=== PATIENT | female | born 1970 | race African-American/Black ===

== ENCOUNTER 2018-11-15 17:00 | Emergency (ER) | payer BC, OTHER ==
[~2018-11-15] VITALS: Ht 149.9 cm; Wt 117.9 kg
[~2018-11-15 17:00] MED LIST: MOTRIN800 MG PO; VICODIN 5-5001 EACH PO
--- OUTSIDE RECORDS SUMMARY | 2018-11-15 17:02 | XMS REPORT ---
Author [facility] Address Unknown Phone Unavailable Care Team Providers Care Director Executive Communications Name Role Phone Unavailable Unavailable Payers Payer Name Policy Type Policy Number Effective Date Expiration Date Problems This patient has no known problems. Allergies, Adverse Reactions, Alerts Allergy Name Allergy Type Status Severity Reaction(s) Onset Date Inactive Date Treating Clinician Comments pseudoephedrine HCl DA Active U 2012-09-07 00:00:00 fexofenadine HCl DA Active U 2012-09-07 00:00:00 Penicillins DA Active SV 2012-09-07 00:00:00 egg DA Active U 2012-09-07 00:00:00 POWDERED GLOVES DA Active U 2012-09-07 00:00:00 Medications This patient has no known medications. Encounters Start Date/Time End Date/Time Encounter Type Admission Type Attending Clinicians Care Facility Care Department Encounter ID 2018-07-21 14:18:48 Outpatient [facility] [id number] 2019-01-01 00:00:00 2019-01-01 00:00:00 Outpatient [facility] [id number] 2018-12-25 00:00:00 2018-12-25 00:00:00 Outpatient [facility] [id number] 2018-12-13 00:00:00 2018-12-13 00:00:00 Outpatient [facility] [id number] 2018-12-11 00:00:00 2018-12-11 00:00:00 Outpatient [facility] [id number] 2018-12-08 00:00:00 2018-12-08 00:00:00 Outpatient [facility] [id number] 2018-12-05 00:00:00 2018-12-05 00:00:00 Outpatient [facility] [id number] 2018-11-14 00:00:00 2018-11-14 00:00:00 Outpatient [facility] [id number] 2018-11-13 10:29:09 2018-11-13 10:29:09 Outpatient [facility] [id number] 2018-11-13 00:00:00 2018-11-13 00:00:00 Outpatient [facility] [id number] 2018-11-10 08:00:48 2018-11-10 08:00:48 Outpatient [facility] [id number] 2018-11-09 00:00:00 2018-11-09 00:00:00 Outpatient [facility] [id number] 2018-11-07 00:00:00 2018-11-07 00:00:00 Outpatient [facility] [id number] 2018-11-07 00:00:00 2018-11-07 00:00:00 Outpatient [facility] [id number] 2018-11-06 00:00:00 2018-11-06 00:00:00 Outpatient [facility] [id number] 2018-11-01 00:00:00 2018-11-01 00:00:00 Outpatient [facility] [id number] 2018-10-24 08:05:51 2018-10-24 08:05:51 Outpatient [facility] [id number] 2018-10-23 08:32:30 2018-10-23 08:32:30 Outpatient [facility] [id number] 2018-10-12 08:29:23 2018-10-12 08:29:23 Outpatient [facility] [id number] 2018-10-10 08:02:13 2018-10-10 08:02:13 Outpatient [facility] [id number] 2018-10-09 09:26:36 2018-10-09 09:26:36 Outpatient [facility] [id number] 2018-10-06 09:24:53 2018-10-06 09:24:53 Outpatient [facility] [id number] 2018-10-03 08:32:58 2018-10-03 08:32:58 Outpatient [facility] [id number] 2018-10-03 00:00:00 2018-10-03 00:00:00 Outpatient [facility] [id number] 2018-10-02 00:00:00 2018-10-02 00:00:00 Outpatient [facility] [id number] 2018-09-26 09:23:07 2018-09-26 09:23:07 Outpatient [facility] [id number] 2018-09-25 07:56:42 2018-09-25 07:56:42 Outpatient [facility] [id number] 2018 11:40:55 2018 11:40:55 Outpatient [facility] [id number] 2018-09-18 12:12:23 2018-09-18 12:12:23 Outpatient [facility] [id number] 2018-09-14 11:45:30 2018-09-14 11:45:30 Outpatient [facility] [id number] 2018-09-14 10:30:38 2018-09-14 10:30:38 Outpatient [facility] [id number] 2018-09-12 08:55:51 2018-09-12 08:55:51 Outpatient [facility] [id number] 2018-09-07 09:24:49 2018-09-07 09:24:49 Outpatient [facility] [id number] 2018-09-06 15:40:30 2018-09-06 15:40:30 Outpatient [facility] [id number] 2018-09-05 09:20:07 2018-09-05 09:20:07 Outpatient [facility] [id number] 2018-09-04 15:27:19 2018-09-04 15:27:19 Outpatient [facility] [id number] 2018-09-04 14:25:42 2018-09-04 14:25:42 Outpatient [facility] [id number] 2018-09-04 14:20:27 2018-09-04 14:20:27 Outpatient [facility] [id number] 2018-09-04 08:42:01 2018-09-04 08:42:01 Outpatient [facility] [id number] 2018-09-04 00:00:00 2018-09-04 00:00:00 Outpatient [facility] [id number] 2018-09-01 13:29:09 2018-09-01 13:29:09 Outpatient [facility] [id number] 2018-08-28 13:37:01 2018-08-28 13:37:01 Outpatient [facility] [id number] 2018-08-28 09:22:00 2018-08-28 09:22:00 Outpatient [facility] [id number] 2018-08-22 13:30:10 2018-08-22 13:30:10 Outpatient [facility] [id number] 2018-08-21 13:10:21 2018-08-21 13:10:21 Outpatient [facility] [id number] 2018-08-21 00:00:00 2018-08-21 00:00:00 Outpatient [facility] [id number] 2018-08-17 15:35:12 2018-08-17 15:35:12 Emergency [facility] [id number] 2018-08-17 12:05:37 2018-08-17 12:05:37 Emergency [facility] [id number] 2018-08-16 06:30:00 2018-08-16 06:30:00 Outpatient [facility] [id number] 2018-08-16 00:00:00 2018-08-16 00:00:00 Outpatient [facility] [id number] 2018-08-08 09:49:42 2018-08-08 09:49:42 Outpatient [facility] [id number] 2018-08-07 13:45:59 2018-08-07 13:45:59 Outpatient [facility] [id number] 2018-08-07 09:49:24 2018-08-07 09:49:24 Outpatient [facility] [id number] 2018-08-07 00:00:00 2018-08-07 00:00:00 Outpatient [facility] [id number] 2018-08-04 11:00:42 2018-08-04 11:00:42 Outpatient [facility] [id number] 2018-08-04 00:00:00 2018-08-04 00:00:00 Outpatient [facility] [id number] 2018-07-31 14:01:07 2018-07-31 14:01:07 Outpatient [facility] [id number] 2018-07-31 12:17:54 2018-07-31 12:17:54 Outpatient [facility] [id number] 2018-07-28 00:00:00 2018-07-28 00:00:00 Outpatient [facility] [id number] 2018-07-28 00:00:00 2018-07-28 00:00:00 Outpatient [facility] [id number] 2018-07-20 00:00:00 2018-07-20 00:00:00 Outpatient [facility] [id number] 2018-07-14 06:59:00 2018-07-14 06:59:00 Emergency [facility] [id number] 2018-07-13 11:21:35 2018-07-13 11:21:35 Outpatient [facility] [id number] 2018-07-13 10:59:44 2018-07-13 10:59:44 Outpatient [facility] [id number] 2018-07-13 09:53:47 2018-07-13 09:53:47 Outpatient [facility] [id number] 2018-07-11 14:55:42 2018-07-11 14:55:42 Outpatient [facility] [id number] 2018-07-11 10:09:17 2018-07-11 10:09:17 Emergency [facility] [id number] 2018-07-11 08:49:37 2018-07-11 08:49:37 Outpatient [facility] [id number] 2018-07-10 00:00:00 2018-07-10 00:00:00 Outpatient [facility] [id number] 2018-07-05 09:00:30 2018-07-05 09:00:30 Outpatient [facility] [id number] 2018-07-04 11:18:37 2018-07-04 11:18:37 Outpatient [facility] [id number] 2018-07-04 00:00:00 2018-07-04 00:00:00 Outpatient [facility] [id number] 2018-06-29 11:21:59 2018-06-29 11:21:59 Outpatient [facility] [id number] 2018-06-27 16:11:00 2018-06-27 16:11:00 Emergency [facility] [id number] 2018-06-08 15:26:32 2018-06-08 15:26:32 Outpatient [facility] [id number] 2018-06-08 14:49:41 2018-06-08 14:49:41 Outpatient [facility] [id number] 2018-06-08 00:00:00 2018-06-08 00:00:00 Outpatient [facility] [id number] 2018-06-08 00:00:00 2018-06-08 00:00:00 Outpatient [facility] [id number] 2018-06-07 09:05:19 2018-06-07 09:05:19 Outpatient [facility] [id number] 2018-06-05 00:00:00 2018-06-05 00:00:00 Outpatient [facility] [id number] 2018-05-11 00:00:00 2018-05-11 00:00:00 Outpatient [facility] [id number] 2018-05-09 00:00:00 2018-05-09 00:00:00 Outpatient [facility] [id number] 2018-05-09 00:00:00 2018-05-09 00:00:00 Outpatient [facility] [id number] 2018-05-08 00:00:00 2018-05-08 00:00:00 Outpatient [facility] [id number] 2018-05-08 00:00:00 2018-05-08 00:00:00 Outpatient [facility] [id number] 2018-04-17 15:13:49 2018-04-17 15:13:49 Outpatient [facility] [id number] 2018-04-11 14:10:55 2018-04-11 14:10:55 Outpatient [facility] [id number] 2017-01-19 00:00:00 2017-01-19 00:00:00 Outpatient [facility] [id number] 2016-12-13 00:00:00 2016-12-13 00:00:00 Outpatient [facility] [id number] 2016-12-01 09:40:51 2016-12-01 09:40:51 Outpatient [facility] [id number] 2016-11-25 14:47:37 2016-11-25 14:47:37 Outpatient [facility] [id number] 2016-11-19 00:00:00 2016-11-19 00:00:00 Outpatient [facility] [id number] 2016-10-07 00:00:00 2016-10-07 00:00:00 Outpatient [facility] [id number] 2016-09-22 11:29:49 2016-09-22 11:29:49 Outpatient [facility] [id number] 2016-09-22 09:35:51 2016-09-22 09:35:51 Outpatient [facility] [id number] 2016-07-28 14:15:54 2016-07-28 14:15:54 Outpatient [facility] [id number] 2016-07-28 13:30:12 2016-07-28 13:30:12 Outpatient [facility] [id number] 2016-07-23 11:08:17 2016-07-23 11:08:17 Outpatient [facility] [id number] 2016-07-23 10:08:44 2016-07-23 10:08:44 Outpatient [facility] [id number] Results Test Description Test Time Test Comments Text Results Atomic Results Result Comments - XR HAND 3 + V RT 2018-07-02 13:28:00 FAX: Shaggy Og [phone] [place]: St: PRE FAX: Y Ashwin Godfrey MD [phone] Name: SIMEON GUY [facility] : 1970 Age/S: 47/F [address] [place] [address] Unit #: [id number] Loc: [place] [address] Phys: Ashwin Godfrey MD Acct: [id number] Dis Date: Status: PRE ER PHONE #: [phone] Exam Date: 07/02/2018 1322 FAX #: [phone] Reason: numbness/pain EXAMS: CPT CODE: [id number] XR HAND 3 + [place] RT [address]34 PROCEDURE: Right Hand Radiographs. Clinical Indication: Right wrist laceration, right hand numbness and pain. Comparison: None FINDINGS: The 3 views of the right hand show an apparent soft tissue laceration involving the volar aspect of the right wrist. No acute displaced fracture, dislocation or radiopaque foreign body is observed. IMPRESSION: 1. Findings suggesting soft tissue laceration. SL: K56-H at 5910 Reported and signed by: Edwin Osei M.D. CC: Shaggy Villalta MD; Ashwin Godfrey MD Technologist: Mary Ellen Estes RT(R) Trnscrd Date/Time/By: 07/02/2018 (6256) : By: JessyO Orig Print D/T: S: 07/02/2018 (0593) PAGE 1 Signed Report
--- OUTSIDE RECORDS SUMMARY | 2018-11-15 17:03 | XMS REPORT | Encounter Summary ---
Author Organization Unknown Address [address] [place] [address] Phone [phone] Care Team Providers Care Analytical Scientist Name Role Phone Dr. Eric Coppola 3 [phone] Reason for Visit Arthritis; Depressive disorder Instructions 1. Localized, primary osteoarthritis of the ankle and/or foot hydrocodone 5 mg-acetaminophen 325 mg tablet 2. Atopic dermatitis hydrocortisone 2.5 % topical cream 3. Asthma ProAir HFA 90 mcg/actuation aerosol inhaler 4. Vitamin D deficiency ergocalciferol (vitamin D2) 50,000 unit capsule vitamin D, 25-hydroxy, total, serum Discussion Note: None recorded. Patient educational handouts: No information available. Plan of Care Reminders Provider Appointments Return to Office on or around 11/03/2018 Eric Guerrero MD Lab Vitamin D, 25-Hydroxy, Total, Serum 08/02/2018 [facility] Laboratory Referral None recorded. Procedures None recorded. Surgeries None recorded. Imaging None recorded. Medications Name Start Date albuterol sulfate 2.5 mg/3 mL (0.083 %) solution for nebulization Inhale 3 mL every 6-8 hours by nebulization route as needed for 10 days. azelastine 0.05 % eye drops 1 [drp] by ophthalmic route. 04/17/2018 ergocalciferol (vitamin D2) 50,000 unit capsule Take 1 capsule every week by oral route as directed for 56 days. fluoxetine 20 mg capsule 20 mg by oral route. 10/07/2016 hydrocodone 5 mg-acetaminophen 325 mg tablet Take 1 tablet(s) every day by oral route as needed hydrocortisone 2.5 % topical cream APPLY A THIN LAYER TO THE AFFECTED AREA(S) BY TOPICAL ROUTE 2 TIMES PER DAY FOR UP TO 2 WEEKS ibuprofen 200 mg tablet Take 1 tablet every 6 hours by oral route with meals for 90 days. ketorolac 0.5 % eye drops INSTILL ONE DROP INTO THE AFFECTED EYE(S) FOUR TIMES A DAY NEEDED meloxicam 15 mg tablet Take 1 tablet every day by oral route as needed for 15 days. ProAir HFA 90 mcg/actuation aerosol inhaler Inhale 2 puffs every 4-6 hours by inhalation route as needed for 30 days. promethazine-DM 6.25 mg-15 mg/5 mL oral syrup Take 5 mL every 6 hours by oral route as needed for 5 days. Symbicort 160 mcg-4.5 mcg/actuation HFA aerosol inhaler Inhale 2 puffs twice a day by inhalation route as directed for 30 days. Medications Administered None recorded. Vitals Height Weight BMI Blood Pressure 4 ft 11 in 262.6 lbs 53 kg/m2 108/74 mm[Hg] Lab Results None recorded. Allergies Code Code System Name Reaction Severity Status Onset KAMERON-D Active Penicillins Active 05904 RxNorm Tramadol Active Problems Name Status Onset Date Source Anxiety State Active 12/08/2005 External Ankle Pain Active 12/08/2005 External Genital Herpes Simplex Active 08/28/2007 External Arthralgia of the Ankle And/or Foot Active 05/29/2010 External Gingivitis Active 11/22/2011 External Recurrent Major Depressive Episodes, Moderate Active 06/13/2013 External Allergic Rhinitis Active 06/02/2016 External Asthmatic Bronchitis Active 06/02/2016 External Gastroesophageal Reflux Disease Active 06/02/2016 External Knee Pain Active 06/02/2016 External Depressive Disorder Active 07/16/2016 Ankle Joint Pain Active 07/16/2016 Abnormal Weight Gain Active 07/16/2016 History of Anemia Active 07/16/2016 Body Mass Index 40+ - Severely Obese Active 07/16/2016 Osteoarthritis of Ankle Active 07/23/2016 External Cervical Intraepithelial Neoplasia Grade 1 Active 07/26/2016 External Bacterial Vaginosis Active External Uterine Leiomyoma Active External Vitamin D Deficiency Active External Obesity Active External Anemia Active External Arthritis Active Low Back Pain Active External Snoring Active External Procedures Date Name Performed by 02/15/1996 Ankle Arthroscopy/surgery Information not available 02/14/1994 Delivery Information not available 02/15/1992 Delivery Information not available Tubal Ligation Information not available Vaccine List Vaccine Type Tdap 03/18/2016 Social History Smoking Status Former Smoker Past Encounters 08/02/2018 Localized, Primary Osteoarthritis of the Ankle And/or Foot; Atopic Dermatitis; Asthma; Vitamin D Deficiency Eric Guerrero MD: [id number] [place] [address], Ph. History of Present Illness Chronic Pain Follow-up Reported By: Patient HPI: Analgesia: taking pain medication, other medication (and strength):, percentage of pain relief: 50 %. Pain Severity: average pain: 8/10, worst pain: 10/10. ADL Improvements: physically functioning, able to maintain relationships, mood unaffected, sleep patterns undisturbed, overall function improved. Adverse Reactions: no nausea, no vomiting, no constipation, no itching, no mental cloudiness, no sweating, no fatigue, no drowsiness, no sexual dysfunction Note:R/o f/u visit. Hx of chronic right ankle and bilateral knee pain (L>than R) secondary to OA.<div>Pt tripped, fell and cut her R wrist with a glass vase on 06/27/18. She had partial median nerve injury.</div> Review of Systems:ROS as noted in the HPI Review of Systems Comprehensive General Adult ROS Reported By: Patient Constitutional: Constitutional: no fever Eyes: Eyes: no vision change ENMT: Ears: no ear pain. Nose: no sinus problems. Mouth/Throat: no sore throat Cardiovascular: Cardiovascular: no chest pain, no palpitations, no known heart murmur, no lightheadedness Gastrointestinal: Gastrointestinal: no abdominal pain, no nausea, no vomiting, no constipation Genitourinary: Genitourinary: no incontinence, no difficulty urinating, no hematuria, no increased frequency Musculoskeletal: Musculoskeletal: arthralgias/joint pain Integumentary: Skin: rash, itching Neurologic: Neurologic: no loss of consciousness, no numbness, no headaches Psychiatric: Psych: no depression Physical Exam General Adult Exam (male), Breast Exam Reported By: Patient Constitutional: General Appearance: obese. Level of Distress: NAD Psychiatric: Insight: good judgement. Mental Status: active and alert, normal mood, normal affect. Orientation: to time, to place, to person. Memory: recent memory normal, remote memory normal Eyes: Lids and Conjunctivae: non-injected, no discharge ENMT: Ears: TMs clear. Nose: nares patent, no nasal discharge. Oropharynx: moist mucous membranes, no erythema, no exudates Neck: Neck: supple, trachea midline. Lymph Nodes: no cervical LAD Lungs: Respiratory effort: no dyspnea. Auscultation: breath sounds normal Cardiovascular: Heart Auscultation: RRR, normal S1, normal S2, no murmurs Musculoskeletal:: Extremities: ; RIGHT ANKLE: tender, decreased ROM because of the pain. KNEES: tenderness in the joint lines. Normal ROM. No swelling. No erythema. Negative anterior and posterior drawer signs. Normal valgus and varus stress test Neurologic: Gait and Station: normal gait. Sensation: grossly intact; weak registered private duty nurse in R hand Skin: Inspection and palpation: ; raised circular lesions in the neck
--- OUTSIDE RECORDS SUMMARY | 2018-11-15 17:03 | XMS REPORT | Encounter Summary ---
Author Organization Unknown Address [address] [place] [address] Phone [phone] Care Team Providers Care Electrotherapist Name Role Phone Dr. Eric Coppola 3 [phone] Reason for Visit cough Instructions 1. Exacerbation of asthma Levaquin 500 mg tablet prednisone 50 mg tablet albuterol sulfate 2.5 mg/3 mL (0.083 %) solution for nebulization Depo-Medrol 80 mg/mL suspension for injection promethazine 6.25 mg-codeine 10 mg/5 mL syrup Advair Diskus 250 mcg-50 mcg/dose powder for inhalation 2. Morbid obesity starting a weight loss plan: care instructions start aerobic exercise body mass index: care instructions dash diet: care instructions Discussion Note: None recorded. Plan of Care Reminders Provider Appointments Est Patient 10/17/2018 9:00AM Eric Guerrero MD Lab None recorded. Referral None recorded. Procedures None recorded. Surgeries None recorded. Imaging None recorded. Medications Name Start Date Advair Diskus 250 mcg-50 mcg/dose powder for inhalation Inhale 1 puff twice a day by inhalation route as directed for 30 days. albuterol sulfate 2.5 mg/3 mL (0.083 %) solution for nebulization Inhale 3 mL as needed by nebulization route as needed. Depo-Medrol 80 mg/mL suspension for injection Take 80 mg by injection route. ergocalciferol (vitamin D2) 50,000 unit capsule Take 1 capsule every week by oral route as directed for 56 days. gabapentin 300 mg capsule Take 1 capsule twice a day by oral route as directed for 30 days. hydrocodone 5 mg-acetaminophen 325 mg tablet Take 1 tablet(s) every day by oral route as needed hydrocortisone 2.5 % topical cream APPLY A THIN LAYER TO THE AFFECTED AREA(S) BY TOPICAL ROUTE 2 TIMES PER DAY FOR UP TO 2 WEEKS Levaquin 500 mg tablet Take 1 tablet every 24 hours by oral route as directed for 10 days. meloxicam 15 mg tablet Take 1 tablet every day by oral route as needed for 15 days. prednisone 50 mg tablet Take 1 tablet every day by oral route as directed for 5 days. ProAir HFA 90 mcg/actuation aerosol inhaler Inhale 2 puffs every 4-6 hours by inhalation route as needed for 30 days. promethazine 6.25 mg-codeine 10 mg/5 mL syrup Take 5 mL 3 times a day by oral route as needed for 5 days. Medications Administered Name Date albuterol sulfate 2.5 mg/3 mL (0.083 %) solution for nebulization Inhale 3 mL as needed by nebulization route as needed. 9710-63-86O28:57:00 Depo-Medrol 80 mg/mL suspension for injection Take 80 mg by injection route. 1099-12-94I35:55:00 Vitals Height Weight BMI Blood Pressure 4 ft 11 in 259.2 lbs 52.4 kg/m2 114/80 mm[Hg] Lab Results None recorded. Allergies Code Code System Name Reaction Severity Status Onset KAMERON-D Active Penicillins Active 15225 RxNorm Tramadol Active Problems Name Status Onset [...] List Vaccine Type Tdap 03/18/2016 Social History Tobacco Smoking Status Former Smoker Past Encounters 09/11/2018 Exacerbation of Asthma; Morbid Obesity Eric Guerrero MD: [address] [place] [address], Ph. History of Present Illness Note:Complaining of persistent productive cough since 3 days ago. Pt completed 10 days of treatment with doxycycline on 08/27/18 for a bacterial pneumonia. Concomitantly, sneezing, chills, sob, wheezing and chest pain with coughing.<div >Pt stopped the symbicort a few weeks ago due to the cost.</div> Review of Systems:ROS as noted in the HPI Review of Systems None recorded. Physical Exam General Adult Exam (male) Reported By: Patient Constitutional: General Appearance: healthy-appearing, morbidly obese. Level of Distress: NAD. Ambulation: ambulating normally Psychiatric: Insight: good judgement. Mental Status: active and alert, normal mood, normal affect. Orientation: to time, to place, to person. Memory: recent memory normal, remote memory normal Eyes: Lids and Conjunctivae: non-injected, no discharge. EOM: EOMI ENMT: Ears: TMs clear. Nose: no sinus tenderness, nares non-patent, nasal discharge, post nasal drip. Lips, Teeth, and Gums: no mouth or lip ulcers. Oropharynx: moist mucous membranes, no exudates, erythema Neck: Neck: supple, trachea midline. Lymph Nodes: cervical LAD. Thyroid: no enlargement, non-tender Lungs: Respiratory effort: no dyspnea. Auscultation: expiratory wheezing, rhonchi Cardiovascular: Heart Auscultation: RRR, normal S1, normal S2, no murmurs Neurologic: Gait and Station: normal gait
--- OUTSIDE RECORDS SUMMARY | 2018-11-15 17:03 | XMS REPORT | Encounter Summary ---
Author Organization Unknown Address [address] [place] [id number] Phone [phone] Care Team Providers Care Heat Regulator Name Role Phone Dr. Eric Coppola 3 [phone] Reason for Visit Asthmatic bronchitis; other - see typed reason; abscess/boil Instructions 1. Exacerbation of asthma Advair Diskus 250 mcg-50 mcg/dose powder for inhalation 2. Localized, primary osteoarthritis of the ankle and/or foot hydrocodone 5 mg-acetaminophen 325 mg tablet 3. Injury of median nerve 4. Abscess of axilla mupirocin 2 % topical ointment Bactrim DS 800 mg-160 mg tablet 5. Allergic rhinitis fluticasone propionate 50 mcg/actuation nasal spray,suspension 6. Influenza vaccination declined 7. Body mass index 40+ - severely obese body mass index: care instructions learning about healthy weight Discussion Note: None recorded. Plan of Care Reminders Provider Appointments Return to Office on or around 02/02/2019 Eric Guerrero MD Lab None recorded. Referral [...] as needed by nebulization route as needed. Bactrim DS 800 mg-160 mg tablet Take 1 tablet every 12 hours by oral route as directed for 10 days. ergocalciferol (vitamin D2) 50,000 unit capsule Take 1 capsule every week by oral route as directed for 56 days. fluticasone propionate 50 mcg/actuation nasal spray,suspension Dodge 1 spray twice a day by intranasal route as directed for 14 days. gabapentin 300 mg capsule Take 1 capsule twice a day by oral route as directed for 30 days. hydrocodone 5 mg-acetaminophen 325 mg tablet Take 1 tablet(s) every day by oral route as needed hydrocortisone 2.5 % topical cream APPLY A THIN LAYER TO THE AFFECTED AREA(S) BY TOPICAL ROUTE 2 TIMES PER DAY FOR UP TO 2 WEEKS hydroxyzine HCl 25 mg tablet Take 1 tablet 3 times a day by oral route. meloxicam 15 mg tablet Take 1 tablet every day by oral route as needed for 15 days. mupirocin 2 % topical ointment APPLY A SMALL AMOUNT TO THE AFFECTED AREA BY TOPICAL ROUTE 3 TIMES PER DAY FOR 10 DAYS Medications Administered None recorded. Vitals Height Weight BMI Blood Pressure 4 ft 11 in 261.8 lbs 52.9 kg/m2 122/78 mm[Hg] Lab Results None recorded. Allergies Code Code System Name Reaction Severity Status Onset KAMERON-D Active Penicillins Active 72868 RxNorm Tramadol Active Problems Name Status Onset [...] Tobacco Smoking Status Former Smoker Past Encounters 11/01/2018 Exacerbation of Asthma; Localized, Primary Osteoarthritis of the Ankle And/or Foot; Injury of Median Nerve; Abscess of Axilla; Allergic Rhinitis; Influenza Vaccination Declined; Body Mass Index 40+ - Severely Obese Eric A. Abdon Guerrero MD: [address] [place] [address], Ph. History of Present Illness Chronic Pain [...] no fatigue, no drowsiness, no sexual dysfunction Note:f/u visit. Hx of chronic right ankle and bilateral knee pain (L>R) secondary to OA. Review of Systems Comprehensive General Adult ROS Reported By: Patient Eyes: Eyes: no vision change ENMT: Ears: no ear pain. Nose: no sinus problems. Mouth/Throat: no sore throat Cardiovascular: Cardiovascular: no chest pain, no palpitations, no known heart murmur, no lightheadedness Gastrointestinal: Gastrointestinal: no abdominal pain, no nausea, no vomiting, no constipation Genitourinary: Genitourinary: no incontinence, no difficulty urinating, no hematuria, no increased frequency Musculoskeletal: Musculoskeletal: arthralgias/joint pain Neurologic: Neurologic: no loss of consciousness, no [...] Eyes: Lids and Conjunctivae: non-injected, no discharge Neck: Neck: supple, trachea midline Lungs: Respiratory effort: no dyspnea. Auscultation: breath [...] Station: normal gait. Sensation: grossly intact; weak commercial decorator in R hand Skin: Inspection and palpation: ; furuncle in R axilla
--- OUTSIDE RECORDS SUMMARY | 2018-11-15 17:03 | XMS REPORT ---
Author Organization Unknown Address [address] [place] [address] Phone [phone] Care Team Providers Care Web Master Name Role Phone Eric Jacobo Unavailable Unavailable Allergies Code Code System Name Reaction Severity Status Onset KAMERON-D Active Penicillins Active 97465 RxNorm Tramadol Active Notes: *PT DISLIKES ROBITUSSIN AC* Medications Name Status Start Date Stop Date albuterol sulfate 2.5 mg/3 mL (0.083 %) solution for nebulization Inhale 3 mL as needed by nebulization route. Active Not available atorvastatin 10 mg tablet Take 1 tablet every day by oral route as directed for 30 days. Completed 12/15/2016 azithromycin 250 mg tablet DIRECTED Completed 02/16/2017 azithromycin 500 mg tablet Take every 24 hours by oral route. Completed 08/05/2016 bupropion HCl SR 150 mg tablet,12 hr sustained-release Take 1 tablet twice a day by oral route. Completed 12/15/2016 cetirizine 10 mg tablet Take every 24 hours by oral route. Completed 12/15/2016 Depo-Medrol 80 mg/mL suspension for injection Take 80 mg by injection route. Completed 02/16/2017 Diflucan 150 mg tablet Take one tablet today, then one tablet 4 days later Completed 04/23/2016 fluticasone 50 mcg/actuation nasal spray,suspension [place]geon 1 spray twice a day by intranasal route as directed for 30 days. Active Not available gabapentin 300 mg capsule Take 1 capsule twice a day by oral route as directed for 30 days. Completed 12/15/2016 hydrocodone 5 mg-acetaminophen 325 mg tablet Take 1 tablet every day by oral route as needed. Active Not available ibuprofen 200 mg tablet Take 1 tablet every 6 hours by oral route with meals for 90 days. Active Not available Levaquin 500 mg tablet every 24 hours by oral route. Completed 04/23/2016 loratadine 10 mg tablet Take 1 tablet every day by oral route for 30 days. Completed 02/16/2017 prednisone 20 mg tablet QD Completed 02/16/2017 prednisone 50 mg tablet Take 1 tablet every day by oral route as directed for 3 days. Completed 02/16/2017 ProAir HFA 90 mcg/actuation aerosol inhaler Inhale 2 puffs every 6-8 hours by inhalation route as needed for 10 days. Completed 05/09/2017 promethazine 6.25 mg-codeine 10 mg/5 mL syrup Take 5 mL 3 times a day by oral route as needed for 5 days. Completed 05/09/2017 promethazine-DM 6.25 mg-15 mg/5 mL syrup Take 5 mL every 6 hours by oral route as needed for 5 days. Completed 05/09/2017 Singulair 10 mg tablet Take 1 tablet every day by oral route for 30 days. Active Not available Tessalon Perles 100 mg capsule Take 1 capsule 3 times a day by oral route as needed for 20 days. Completed 12/15/2016 Vitamin D2 50,000 unit capsule Take 1 capsule every week by oral route. Completed 02/08/2017 Problems Name Status Onset Date Source Depressive Disorder Active 07/16/2016 Ankle Joint Pain Active 07/16/2016 Abnormal Weight Gain Active 07/16/2016 History of Anemia Active 07/16/2016 Body Mass Index 40+ - Severely Obese Active 07/16/2016 Arthritis Active Procedures Date Name Performed by 02/15/1996 Ankle Arthroscopy/surgery Notes: right Information not available 02/14/1994 Delivery Information not available 02/15/1992 Delivery Information not available Tubal Ligation Information not available Lab Results Date Name Specimen Result Interpretation Description Value Range Status Address 07/19/2016 HIV-1/2 Ag and Abs Screen, 4TH Gen. W/rflx (94222) Normal HIV Ag/Ab, 4TH Gen non-reactive non-reactive [facility] Laboratory: [facility] [address] [address] 07/19/2016 Hepatitis C Virus RNA, Quant, PCR, Serum or Plasma Normal Hepatitis C Antibody non-reactive non-reactive [facility] Laboratory: [address] [place] [address] Normal Signal to Cut-off 0.05 <1.00 [facility] Laboratory: [address] [place], [place] [address]y [address] 07/19/2016 Herpes Simplex Virus 2 Ab, IgG, QL, IA, Serum or Plasma High Hsv 2 IgG, Type Specific Ab 11.80 index [facility] Laboratory: [address], [place] 07/19/2016 HBsAg (Hepatitis B Surface Ag), Confirmation, Serum Normal Hepatitis B Surface Antigen non-reactive non-reactive Final [facility] Laboratory: [address] [place] [address] Confirmation Preliminary [facility] Laboratory: [address], [place] 07/19/2016 RPR (Rapid Plasma Reagin), Quantitative, Serum Normal RPR (DX) W/refl Titer and Confirmatory Testing non-reactive non-reactive Final [facility] [address] [facility] CBC W/ Auto Diff Normal White Blood Cell Count 7.7 thousand/uL 3.8-10.8 thousand/uL Final [facility] Laboratory: [address] Normal Red Blood Cell Count 4.87 million/uL 3.80-5.10 million/uL Final [facility] Laboratory: [address] Normal Hemoglobin 12.6 g/dL 11.7-15.5 g/dL Final [facility] Laboratory: [address] Normal Hematocrit 39.8 % 35.0-45.0 % Final [facility] Laboratory: [address] Normal Mcv 81.7 fL 80.0-100.0 fL Final [facility] Laboratory: [address] [place] [address] Low Mch 25.9 pg 27.0-33.0 pg Final [facility] Laboratory: [address] [place] [address] Low Mchc 31.7 g/dL 32.0-36.0 g/dL Final [facility] Laboratory: [address] High Rdw 16.2 % 11.0-15.0 % Final [facility] Laboratory: [address] Normal Platelet Count 323 thousand/uL 140-400 thousand/uL Final [facility] Laboratory: [address] [place] [address] Normal Mpv 9.1 fL 7.5-12.5 fL Final [facility] Laboratory: [address] Normal Absolute Neutrophils 4805 cells/uL 9722-6727 cells/uL Final [facility] Laboratory: [address] Absolute Band Neutrophils Preliminary [facility] Laboratory: [address], [place] Absolute Metamyelocytes Preliminary [facility] Laboratory: [address], [place] Absolute Myelocytes Preliminary [facility] Laboratory: [address], [place] Absolute Promyelocytes Preliminary [facility] Laboratory: [address], [place] Normal Absolute Lymphocytes 2110 cells/uL 850-3900 cells/uL Final [facility] Laboratory: [address], [place] Normal Absolute Monocytes 393 cells/uL 200-950 cells/uL Final [facility] Laboratory: [address], [place] Normal Absolute Eosinophils 354 cells/uL 15-500 cells/uL Final [facility] Laboratory: [address] [place] Normal Absolute Basophils 39 cells/uL 0-200 cells/uL Final [facility] Laboratory: [address], [place] Absolute Blasts Preliminary [facility] Laboratory: [address], [place] Absolute Nucleated RBC Preliminary [facility] Laboratory: [address], [place] Normal Neutrophils 62.4 % Final [facility] Laboratory: [address], [place] Band Neutrophils Preliminary [facility] Laboratory: [address], [place] Metamyelocytes Preliminary [facility] Laboratory: [address], [place] Myelocytes Preliminary [facility] Laboratory: [address], [place] Promyelocytes Preliminary [facility] Laboratory: [address], [place] Normal Lymphocytes 27.4 % Final [facility] Laboratory: [address], [place] Reactive Lymphocytes Preliminary [facility] Laboratory: [address], [place] Normal Monocytes 5.1 % Final [facility] Laboratory: [address], [place] Normal Eosinophils 4.6 % Final [facility] Laboratory: [address], [place] Normal Basophils 0.5 % Final [facility] Laboratory: [address], [place] Blasts Preliminary [facility]: [address], [place] Nucleated RBC Preliminary [facility] Laboratory: [address], [place] Comment(s) Preliminary [facility] Laboratory: [address], [place] 07/19/2016 Lipid Panel, Serum High Cholesterol, Total 234 mg/dL 125- 200 mg/dL Final [facility] Laboratory: [address] Normal HDL Cholesterol 62 mg/dL > or=46 mg/dL Final [facility] Laboratory: [address] Normal Triglycerides 104 mg/dL <150 mg/dL Final [facility] Laboratory: [address] High LDL-cholesterol 151 mg/dL (calc) <130 mg/dL (calc) Final [facility] Laboratory: [address] Normal Chol/hdlc Ratio 3.8 (calc) < or=5.0 (calc) Final [facility] Laboratory: [address] High Non HDL Cholesterol 172 mg/dL (calc) Final [facility] Laboratory: [address] 07/19/2016 CMP, Serum or Plasma Normal Glucose 84 mg/dL 65-99 mg/dL Final [facility] Laboratory: [address] Normal Urea Nitrogen (BUN) 12 mg/dL 7-25 mg/dL Final [facility] Laboratory: [address] Normal Creatinine 0.71 mg/dL 0.50-1.10 mg/dL Final [facility] Laboratory: [address] Normal eGFR Non-afr. Cuban 103 mL/min/1.73m2 > or=60 mL/min/1.73m2 Final [facility] Laboratory: [address] Normal eGFR 119 mL/min/1.73m2 > or=60 mL/min/1.73m2 Final [facility] Laboratory: [address] BUN/creatinine Ratio not applicable (calc) 6-22 (calc) Final [facility]: [address] Normal Sodium 138 mmol/L 135-146 mmol/L Final [facility] Laboratory: [address] Normal Potassium 3.9 mmol/L 3.5-5.3 mmol/L Final [facility] Laboratory: [address] Normal Chloride 101 mmol/L 98-110 mmol/L Final [facility] Laboratory: [address] Normal Carbon Dioxide 27 mmol/L 20-31 mmol/L Final [facility] Laboratory: [address] Normal Calcium 9.4 mg/dL 8.6-10.2 mg/dL Final [facility] Laboratory: [address] Normal Protein, Total 8.1 g/dL 6.1-8.1 g/dL Final [facility] Laboratory: [address] Normal Albumin 4.7 g/dL 3.6-5.1 g/dL Final [facility] Laboratory: [facility] [address] Normal Globulin 3.4 g/dL (calc) 1.9-3.7 g/dL (calc) Final [facility] Laboratory: [address] [place] [address] Normal Albumin/globulin Ratio 1.4 (calc) 1.0-2.5 (calc) Final [facility] Laboratory: [facility] [address] Normal Bilirubin, Total 0.7 mg/dL 0.2-1.2 mg/dL Final [facility] Laboratory: [address] [place] [address] Normal Alkaline Phosphatase 70 U/L 33-115 U/L Final [facility] Laboratory: [facility] [address] Normal Ast 19 U/L 10-35 U/L Final [facility] Laboratory: [address] Normal Alt 12 U/L 6-29 U/L Final [facility] Laboratory: [facility] [address] 07/19/2016 TSH, Serum or Plasma Normal Tsh 2.66 mIU/L Final [facility] Laboratory: [address] [place] [address] 07/19/2016 HbA1C (Hemoglobin a1C), Blood High Hemoglobin a1C 5.7 % of total HGB <5.7 % of total HGB Final [facility] Laboratory: [address] EAG (mg/dL) 117 (calc) Final [facility] Laboratory: [address] EAG (mmol/L) 6.5 (calc) Final [facility] Laboratory: [address] [place] [address] 07/19/2016 CT + NG RNA, Urine Comment Final [facility] Laboratory: [address] [place] [address] Normal Chlamydia Trachomatis RNA, Tma not detected not detected Final [facility] Laboratory: [address] [place] Normal Neisseria Gonorrhoeae RNA, Tma not detected not detected Final [facility] Laboratory: [address] [facility] [address], [place] 07/16/2016 RPR (Rapid Plasma Reagin), Quantitative, Serum No observation recorded. 07/16/2016 CT + NG RNA, Urine No observation recorded. 07/16/2016 Herpes Simplex Virus 2 Ab, IgG, QL, IA, Serum or Plasma No observation recorded. 07/16/2016 TSH, Serum or Plasma No observation recorded. 07/16/2016 CBC W/ Auto Diff No observation recorded. 07/16/2016 HbA1C (Hemoglobin a1C), Blood No observation recorded. 07/16/2016 CMP, Serum or Plasma No observation recorded. 07/16/2016 Lipid Panel, Serum No observation recorded. 03/24/2016 Drug Screen, Urine No observation recorded. [facility] Laboratory: [address] [facility] [place] CBC W/ Auto Diff No observation recorded. Urinalysis, Dipstick Color Color yellow [facility]: [address], [place] Color Appearance clear [facility]: [address], [place] Color Glucose negative [facility]: [address], [place] Color Bilirubin negative [facility]: [address], [place] Color Ketones trace [facility]: [address], [place] Color Specific [place] 1.030 [facility]: [address], [place] Color Blood negative [facility]: [address], [place] Color PH 5.5 [facility]: [address], [place] Color Protein trace [facility]: [address], [place] Color Urobilinogen 0.2 [facility]: [address], [place] Color Nitrites negative [facility]: [address], [place] Color Leukocytes negative [facility]: [address], [place] Past Encounters 05/09/2017 Localized, Primary Osteoarthritis of the Ankle And/or Foot; Osteoarthritis of Knee; Allergic Rhinitis; Hyperlipidemia; Body Mass Index 40+ - Severely Obese Eric Guerrero MD: [address] [place] [phone], Ph. 02/16/2017 Acute Bronchospasm Eric Guerrero MD: [address] [place] [phone], Ph. 02/08/2017 Localized, Primary Osteoarthritis of the Ankle And/or Foot; Osteoarthritis of Knee; Hyperlipidemia; Acute Bronchitis; Body Mass Index 40+ - Severely Obese; Influenza Vaccination Eric Guerrero MD: [address] [place] [phone], Ph. 12/15/2016 Ankle Joint Pain; Arthritis; History of Fall; Allergic Rhinitis; Otitis Externa; Medication Monitoring; Depressive Disorder Moriah Zacarias DEPUTY FELONY CLERK: [address] [place] [phone], Ph. 08/05/2016 Ankle Joint Pain; Allergic Rhinitis; Knee Pain; Depressive Disorder; Hyperlipidemia Eric Guerrero MD: [address] [place] [phone], Ph. 07/16/2016 Ankle Joint Pain; Depressive Disorder; Abnormal Weight Gain; History of Anemia; Exposure to Blood And/or Body Fluid; Right Flank Pain; Body Mass Index 40+ - Severely Obese; Adult Health Examination Cindi Tee MD: [address] [place] [phone], Ph. 04/23/2016 Acute Bronchitis Eri Hardy MD: [address] [place] [phone], Ph. 03/24/2016 Vaccines Adverse Reaction; Ankle Joint Pain; Acute Sinusitis; Medication Monitoring; Anemia; Abnormal Weight Gain; Burn Eric Guerrero MD: [address] [place] [phone], Ph. Social History Smoking Status Former Smoker Notes: quit 2 years ago Vaccine List Vaccine Type Tdap 03/18/2016 Plan of Care Reminders Provider Appointments None recorded. Lab None recorded. Referral None recorded. Procedures None recorded. Surgeries None recorded. Imaging None recorded. Vitals 05/09/2017 02:45PM Work In Same Day Height Weight Blood Pressure 4 ft 11 in 130/80 mm[Hg] 02/16/2017 02:30PM Est Patient Height Weight BMI Blood Pressure 4 ft 11 in 256 lbs 51.7 kg/m2 118/80 mm[Hg] 02/08/2017 01:45PM Work In Same Day Height Weight BMI Blood Pressure 4 ft 11 in 250 lbs 50.5 kg/m2 130/92 mm[Hg] 12/15/2016 10:15AM Est Patient Height Weight BMI Blood Pressure 4 ft 11 in 250 lbs 50.5 kg/m2 114/78 mm[Hg] 08/05/2016 02:45PM Est Patient Height Weight BMI Blood Pressure 4 ft 11 in 262 lbs 52.9 kg/m2 130/90 mm[Hg] 07/16/2016 03:15PM Est Patient Height Weight BMI Blood Pressure 4 ft 11 in 264 lbs 53.3 kg/m2 95/69 mm[Hg] 04/23/2016 10:00AM Est Patient Height Weight BMI Blood Pressure 4 ft 11 in 258 lbs 52.1 kg/m2 124/95 mm[Hg] 03/24/2016 09:15AM Est Patient Height Weight BMI Blood Pressure 4 ft 11 in 256 lbs 51.7 kg/m2 116/93 mm[Hg]
== END 2018-11-15 18:41 | disposition home or self-care (01) ==
LOC: ER 17:00
DX: H92.01 Otalgia, right ear (principal)
CPT/HCPCS: 99282

== ENCOUNTER 2019-05-01 09:18 | Emergency (ER) | payer BC ==
[~2019-05-01] VITALS: Ht 149.9 cm; Wt 117.9 kg
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
--- OUTSIDE RECORDS SUMMARY | 2019-05-01 09:22 | XMS REPORT | Encounter Summary ---
Author Organization Unknown Address [address] [place] [address] Phone [phone] Care Team Providers Care Under Water Assistant Name Role Phone Dr. Eric Coppola 3 [phone] Reason for Visit Asthmatic bronchitis; cough / [...] Severity Status Onset KAMERON-D Active Penicillins Active 42450 RxNorm Tramadol Active Problems Name Status Onset [...] 40+ - Severely Obese Wood Nelson, DO: [address] [place] [address], Ph. History of Present Illness Note:1) ASTHMA<div>- [...] hydrocodone for several years. Has not seen automatic paint sprayer operator. </div><div>
</div><div>3) SKIN LESION < /div><div>- believes she was bitten by insect on right stomach and right breast. Was seen by [facility] clinician and given antibiotics. States lesion resolved. [...]
--- NOTE | 2019-05-01 09:32 | NUR ---
Client admitted to Dr. Bolanos that she is here for COVID-[address] Bolanos explained that the COVID test should be obtained through the department of health for all well individuals.
[2019-05-01] MEDS ORDERED: TYLENOL WITH C1 EACH PO (09:34)
== END 2019-05-01 09:43 | disposition home or self-care (01) ==
LOC: ER 09:18
DX: J45.30 Mild persistent asthma, uncomplicated (principal)
CPT/HCPCS: 99281

== ENCOUNTER → 2020-10-27 | Outpatient (CLI) | payer BC ==
[~2020-10-27] MED LIST changes: +TYLENOL WITH C1 EACH PO
== END ==
LOC: US 07:30
PROVIDERS: ATTEND Emergency Medicine
DX: K30 Functional dyspepsia (principal)
CPT/HCPCS: 76705

== ENCOUNTER 2022-01-27 21:10 | Emergency (ER) | payer BC ==
[~2022-01-27] VITALS: Ht 149.9 cm; Wt 117.9 kg
== END 2022-01-27 22:05 | disposition home or self-care (01) ==
LOC: ER 21:14
DX: H10.89 Other conjunctivitis (principal); I10 Essential (primary) hypertension; J45.909 Unspecified asthma, uncomplicated
CPT/HCPCS: 99282